=== PATIENT | female | born 1930 | race Caucasian/White ===

== ENCOUNTER 2020-09-24 14:02 | Inpatient (IN) | payer MEDICARE ==
[~2020-09-24] VITALS: Ht 152.4 cm; Wt 37.4 kg
[2020-09-24] MEDS ORDERED: ONDANSETRON 2MG/ML, 2ML IVPush ONE (17:30)
[2020-09-24] MEDS ORDERED: SODIUM CHLORIDE 0.9% 1,000ML IVBOLUS ONE (17:30)
[2020-09-24] MEDS ORDERED: SODIUM CHLORIDE FLUSH 10ML SYR IVF ONE (17:30)
[2020-09-24] MEDS ORDERED: ONDANSETRON 2MG/ML, 2ML ONE ×2 (17:44→23:06)
--- NOTE | 2020-09-24 17:55 | NUR ---
PT PRESENTS TO ED WITH C/O NAUSEA/DIARRHEA X3 DAYS AND BLACK STOOL. PT STATES TOOK PEPTO BISMOL RECENTLY. UNKNOWN HX OF ULCERS. AGUSTIN MAN AT BEDSIDE FOR EVAL.
--- NOTE | 2020-09-24 18:15 | NUR ---
PIV placed, meds given per order, fluids infusing, pt tolerated well. warm blanket provided, vss, nadn.
[2020-09-24 18:35] LABS: BASOPHILS % (AUTO) 0 % (0-1); EOSINOPHILS % (AUTO) 0 % (1-7); LYMPHOCYTES % (AUTO) 20 % (22-44); MEAN CORPUSCULAR HEMOGLOBIN 28.4 pg (27.0-34.8); MEAN CORPUSCULAR HGB CONC 33.2 g/dL (32.4-35.8); MEAN PLATELET VOLUME 8.3 fL (7.4-10.4); MONOCYTES % (AUTO) 10 % (2-9); NEUTROPHILS % (AUTO) 71 % (42-75); PLATELET COUNT 263 x10^3/uL (130-400); RED BLOOD COUNT 5.05 x10^6/uL (3.82-5.3); RED CELL DISTRIBUTION WIDTH 16.1 % (9.6-15.2)
[2020-09-24 18:46] LABS: ALANINE AMINOTRANSFERASE 13 U/L (12-78); ALBUMIN 2.8 g/dL (3.4-5.0); ANION GAP 9 mmol/L (5-15); CALCIUM 9.3 mg/dL (8.5-10.1); CHLORIDE 97 mmol/L (98-107); CREATININE 1.07 mg/dL (0.55-1.02)
[2020-09-24 18:48] LABS: ALKALINE PHOSPHATASE 93 U/L (45-117); BILIRUBIN,TOTAL 0.6 mg/dL (0.2-1.0); TOTAL PROTEIN 7.7 g/dL (6.4-8.2)
--- NOTE | 2020-09-24 19:01 | NUR ---
PT TO CT AT THIS TIME
[2020-09-24] MEDS ORDERED: OMNIPAQUE 350 MG/ML, 100ML BOTTLE ONE (19:28)
--- NOTE | 2020-09-24 19:30 | NUR ---
pt back from ct, vss, nadn.
--- NOTE | 2020-09-24 19:59 | NUR ---
thalia Lancaster at bedside to discuss poc
--- NOTE | 2020-09-24 20:47 | NUR ---
NG tube placed after 2 attempts, [address], MD aware. CXR ordered to confirm placement.
--- NOTE | 2020-09-24 20:48 | NUR ---
[facility] at bedside for eval
--- NOTE | 2020-09-24 21:06 | NUR ---
REPORT CALLED TO DEL IN OR
[2020-09-24] MEDS ORDERED: ONDANSETRON 2MG/ML, 2ML IVPush PRN (21:30)
[2020-09-24] MEDS ORDERED: morphine SULFATE 10 MG/ML, 1ML IVPush PRN (21:30)
[2020-09-24] MEDS: LACTATED RINGERS 1,000 ML IV SCH (21:30)
[2020-09-24] MEDS ORDERED: LABETALOL 5MG/ML, 20ML IVPush PRN (21:30)
[2020-09-24] MEDS: FAMOTIDINE 20 MG/2 ML IVPush SCH (21:30)
[2020-09-24] MEDS ORDERED: EPINEPHRINE 1 MG/ML, 1ML ONE (21:52)
[2020-09-24] MEDS ORDERED: BUPIVACAINE/PF 0.5% ONE (21:52)
--- NOTE | 2020-09-24 21:57 | NUR ---
REPORT TAKEN FROM LUIS RN, NG TUBE DC'D DUE TO INCORRECT PLACEMENT. PT READY FOR SURGERY, ALL JEWELRY REMOVED, COVID SWAB SENT, MARTYN.
[2020-09-24] MEDS ORDERED: BUPIVACAINE/PF-EPI 0.5% 1:200K IM ONE (22:45)
--- NOTE | 2020-09-24 22:57 | NUR ---
pt taken to OR at this time
[2020-09-24] MEDS ORDERED: FENTANYL PF 100 MCG/2ML ONE (23:05)
[2020-09-24] MEDS ORDERED: EPHEDRINE 50 MG/ML, 1ML ONE (23:06)
[2020-09-24] MEDS ORDERED: DEXAMETHASONE 4 MG/ML, 1ML ONE (23:06)
[2020-09-24] MEDS ORDERED: ROCURONIUM 10MG/ML,5ML ONE (23:24)
[2020-09-24] MEDS ORDERED: PROPOFOL 10 MG/ML, 20ML ONE (23:24)
[2020-09-24] MEDS ORDERED: SUCCINYLCHOLINE 20 MG/ML, 10ML ONE (23:24)
[2020-09-25] MEDS ORDERED: DIPHENHYDRAMINE 50 MG/ML, 1ML IVPush PRN ×2
[2020-09-25] MEDS ORDERED: PROMETHAZINE 12.5 MG SUPP PR PRN
[2020-09-25] MEDS ORDERED: FENTANYL PF 100 MCG/2ML IV PRN
[2020-09-25] MEDS ORDERED: ONDANSETRON 2MG/ML, 2ML IVPush PRN
[2020-09-25] MEDS ORDERED: ALBUTEROL SULFATE 2.5 MG/3 ML NPPB PRN
[2020-09-25] MEDS ORDERED: hydrALAzine 20 MG/ML, 1ML IV PRN
[2020-09-25] MEDS ORDERED: EPHEDRINE 50 MG/ML, 1ML IVPush PRN
[2020-09-25] MEDS ORDERED: LABETALOL 5MG/ML, 20ML IV PRN
[2020-09-25] MEDS ORDERED: OXYcodone 5 MG/5 ML ORAL.SOL UDC PO PRN
[2020-09-25] MEDS ORDERED: PROMETHAZINE 25 MG/ML, 1ML IVPush PRN
[2020-09-25] MEDS ORDERED: MEPERIDINE/PF 25MG/0.5ML IVPush PRN
[2020-09-25] MEDS ORDERED: HYDROmorphone 2 MG/ML, 1ML ONE (00:29)
[2020-09-25] MEDS: HYDROmorphone 1 MG/ML, 1ML INJ IVPush PRN ×3 (00:30→00:50)
[2020-09-25] MEDS ORDERED: hydrALAzine 20 MG/ML, 1ML ONE (00:37)
[2020-09-25] MEDS ORDERED: KETOROLAC 30 MG/1 ML ONE (00:43)
[2020-09-25] MEDS: KETOROLAC 30 MG/1 ML IV PRN ×3 (00:45→16:12)
[2020-09-25 01:40] VITALS: BP 109/63
[2020-09-25] MEDS ORDERED: ASPI81TA45 PO (02:22)
[2020-09-25] MEDS ORDERED: TIMO1DRO6 EACHEYE (02:22)
[2020-09-25] MEDS ORDERED: TRAM50TA2 PO (02:22)
[2020-09-25] MEDS ORDERED: BRIN10DR EACHEYE (02:22)
[2020-09-25] MEDS ORDERED: CLOP75TA52 PO (02:22)
[2020-09-25] MEDS ORDERED: PANT40TA3 PO (02:22)
[2020-09-25] MEDS ORDERED: TRIA15OI TP (02:22)
[2020-09-25] MEDS ORDERED: GABA-826 PO (02:22)
[2020-09-25] MEDS ORDERED: NETA2.5D EACHEYE (02:22)
[2020-09-25] MEDS ORDERED: LORA-864 PO (02:22)
[2020-09-25] MEDS ORDERED: LISI20TA21 PO (02:22)
[2020-09-25 04:21] VITALS: BP 102/63
[2020-09-25 04:28] LABS: MEAN CORPUSCULAR HEMOGLOBIN 28.5 pg (27.0-34.8); MEAN CORPUSCULAR HGB CONC 33.3 g/dL (32.4-35.8); MEAN PLATELET VOLUME 8.4 fL (7.4-10.4); PLATELET COUNT 233 x10^3/uL (130-400); RED BLOOD COUNT 4.58 x10^6/uL (3.82-5.3); RED CELL DISTRIBUTION WIDTH 16.2 % (9.6-15.2)
[2020-09-25 04:37] LABS: ANION GAP 8 mmol/L (5-15); CALCIUM 8.4 mg/dL (8.5-10.1); CHLORIDE 103 mmol/L (98-107)
[2020-09-25 04:55] LABS: ANISOCYTOSIS 1+; BAND#(MANUAL) 1.53 x10^3/uL; BANDS%(MANUAL) 18 % (0-7); LYMPH#(MANUAL) 0.77 x10^3/uL (1-3.4); LYMPHS% (MANUAL) 9 % (22-44); MICROCYTOSIS 1+; MONOS% (MANUAL) 7 % (2-9); OVALOCYTES 1+; SEG#(MANUAL) 5.61 x10^3/uL (1.8-6.8); SEGS% (MANUAL) 66 % (42-75)
[2020-09-25 04:56] LABS: <PLATELET ESTIMATE> ADEQUATE; <PLT MORPHOLOGY> NORMAL PLT MORPH; TOXIC GRAN 1+
[2020-09-25] MEDS ORDERED: POTASSIUM CHLORIDE 40 MEQ in SODIUM CHLORIDE 0.9% 500 ML IV ONE (08:30)
[2020-09-25 08:34] VITALS: BP 111/54
[2020-09-25] MEDS: FAMOTIDINE 20 MG/2 ML IVPush SCH ×2 (11:04→20:54)
[2020-09-25] MEDS: LACTATED RINGERS 1,000 ML IV SCH (11:05)
[2020-09-25 13:24] VITALS: BP 112/62
[2020-09-25 20:32] VITALS: BP 134/72
[2020-09-26 01:34] VITALS: BP 137/77
[2020-09-26] MEDS: LACTATED RINGERS 1,000 ML IV SCH ×2 (01:59→10:00)
[2020-09-26 05:42] LABS: BASOPHILS % (AUTO) 0 % (0-1); EOSINOPHILS % (AUTO) 0 % (1-7); LYMPHOCYTES % (AUTO) 22 % (22-44); MEAN CORPUSCULAR HEMOGLOBIN 28.5 pg (27.0-34.8); MEAN CORPUSCULAR HGB CONC 33.2 g/dL (32.4-35.8); MEAN PLATELET VOLUME 8.2 fL (7.4-10.4); MONOCYTES % (AUTO) 11 % (2-9); NEUTROPHILS % (AUTO) 67 % (42-75); PLATELET COUNT 183 x10^3/uL (130-400); RED BLOOD COUNT 3.85 x10^6/uL (3.82-5.3); RED CELL DISTRIBUTION WIDTH 16.2 % (9.6-15.2)
[2020-09-26 05:45] LABS: CHLORIDE 110 mmol/L (98-107)
[2020-09-26 05:57] LABS: ANION GAP 4 mmol/L (5-15); CALCIUM 8.4 mg/dL (8.5-10.1)
[2020-09-26 07:40] VITALS: BP 166/71
[2020-09-26] MEDS ORDERED: hydrALAzine 20 MG/ML, 1ML IV PRN (08:00)
[2020-09-26 12:10] VITALS: BP 167/70
[2020-09-26] MEDS ORDERED: POTASSIUM PHOSPHATE 22 MEQ in SODIUM CHLORIDE 0.9% 500 ML IV ONE (14:30)
[2020-09-26 20:01] VITALS: BP 137/74
[2020-09-26] MEDS: TIMOLOL OPHTH 0.5%, 5ML EACHEYE SCH (20:54)
[2020-09-26] MEDS: FAMOTIDINE 20 MG/2 ML IVPush SCH (20:54)
[2020-09-26] MEDS: OPTHALMIC EACHEYE SCH (20:54)
[2020-09-26] MEDS: NETARSUDIL EACHEYE SCH (20:54)
[2020-09-26] MEDS: BRINZOLAMIDE 1% EACHEYE SCH (20:54)
[2020-09-27 00:24] VITALS: BP 144/76
[2020-09-27] MEDS: LACTATED RINGERS 1,000 ML IV SCH ×2 (03:58→13:45)
[2020-09-27 06:17] LABS: BASOPHILS % (AUTO) 0 % (0-1); EOSINOPHILS % (AUTO) 0 % (1-7); LYMPHOCYTES % (AUTO) 17 % (22-44); MEAN CORPUSCULAR HEMOGLOBIN 28.1 pg (27.0-34.8); MEAN CORPUSCULAR HGB CONC 32.5 g/dL (32.4-35.8); MEAN PLATELET VOLUME 8.3 fL (7.4-10.4); MONOCYTES % (AUTO) 9 % (2-9); NEUTROPHILS % (AUTO) 73 % (42-75); PLATELET COUNT 213 x10^3/uL (130-400); RED BLOOD COUNT 3.87 x10^6/uL (3.82-5.3); RED CELL DISTRIBUTION WIDTH 16.6 % (9.6-15.2)
[2020-09-27 06:21] LABS: ANION GAP 9 mmol/L (5-15); CALCIUM 8.4 mg/dL (8.5-10.1); CHLORIDE 109 mmol/L (98-107)
[2020-09-27 06:24] LABS: CREATININE 0.41 mg/dL (0.55-1.02)
[2020-09-27 07:35] VITALS: BP 185/88
[2020-09-27] MEDS: OPTHALMIC EACHEYE SCH ×2 (09:27→19:48)
[2020-09-27] MEDS: BRINZOLAMIDE 1% EACHEYE SCH ×2 (09:27→19:48)
[2020-09-27] MEDS: TIMOLOL OPHTH 0.5%, 5ML EACHEYE SCH ×2 (09:39→19:48)
[2020-09-27 12:50] VITALS: BP 154/78
[2020-09-27] MEDS ORDERED: ENOXAPARIN 40 MG/0.4 ML SQ SCH (15:00)
[2020-09-27] MEDS: D5%-0.45NACL+KCL 20MEQ 1,000 ML IV SCH ×2 (15:40→23:52)
[2020-09-27 19:02] VITALS: BP 157/81
[2020-09-27] MEDS: FAMOTIDINE 20 MG/2 ML IVPush SCH (19:48)
[2020-09-27] MEDS: NETARSUDIL EACHEYE SCH (19:48)
[2020-09-28 00:04] VITALS: BP 155/97
[2020-09-28] MEDS: KETOROLAC 30 MG/1 ML IV PRN (01:56)
[2020-09-28 05:40] LABS: BASOPHILS % (AUTO) 0 % (0-1); EOSINOPHILS % (AUTO) 1 % (1-7); LYMPHOCYTES % (AUTO) 18 % (22-44); MEAN CORPUSCULAR HEMOGLOBIN 28.2 pg (27.0-34.8); MEAN CORPUSCULAR HGB CONC 33.1 g/dL (32.4-35.8); MEAN PLATELET VOLUME 8.3 fL (7.4-10.4); MONOCYTES % (AUTO) 11 % (2-9); NEUTROPHILS % (AUTO) 70 % (42-75); PLATELET COUNT 222 x10^3/uL (130-400); RED CELL DISTRIBUTION WIDTH 15.7 % (9.6-15.2)
[2020-09-28 05:51] LABS: ANION GAP 6 mmol/L (5-15); CALCIUM 7.8 mg/dL (8.5-10.1); CHLORIDE 102 mmol/L (98-107)
[2020-09-28 05:53] LABS: CREATININE 0.45 mg/dL (0.55-1.02)
[2020-09-28 06:39] VITALS: BP 153/78
[2020-09-28] MEDS: BRINZOLAMIDE 1% EACHEYE SCH ×2 (08:26→20:20)
[2020-09-28] MEDS: OPTHALMIC EACHEYE SCH ×2 (08:26→20:20)
[2020-09-28] MEDS: D5%-0.45NACL+KCL 20MEQ 1,000 ML IV SCH (08:26)
[2020-09-28] MEDS ORDERED: POTASSIUM PHOSPHATE 44 MEQ in SODIUM CHLORIDE 0.9% 500 ML IV ONE (08:30)
[2020-09-28] MEDS: TIMOLOL OPHTH 0.5%, 5ML EACHEYE SCH ×2 (09:10→20:20)
[2020-09-28] MEDS ORDERED: GLYCERIN ADULT SUPP PR PRN (12:00)
[2020-09-28] MEDS: BISACODYL 10 MG SUPP PR PRN (13:12)
[2020-09-28 14:00] VITALS: BP 149/94
[2020-09-28] MEDS: ENOXAPARIN 30 MG/0.3 ML SQ SCH (17:09)
[2020-09-28 19:10] VITALS: BP 165/80
[2020-09-28] MEDS: FAMOTIDINE 20 MG/2 ML IVPush SCH (20:19)
[2020-09-28] MEDS: NETARSUDIL EACHEYE SCH (20:20)
[2020-09-29 02:42] VITALS: BP 153/76
[2020-09-29 05:42] LABS: ANION GAP 6 mmol/L (5-15); CALCIUM 7.4 mg/dL (8.5-10.1); CHLORIDE 107 mmol/L (98-107)
[2020-09-29 05:43] LABS: CREATININE 0.46 mg/dL (0.55-1.02)
[2020-09-29 05:44] LABS: BASOPHILS % (AUTO) 0 % (0-1); EOSINOPHILS % (AUTO) 1 % (1-7); LYMPHOCYTES % (AUTO) 24 % (22-44); MEAN CORPUSCULAR HEMOGLOBIN 28.9 pg (27.0-34.8); MEAN CORPUSCULAR HGB CONC 33.7 g/dL (32.4-35.8); MEAN PLATELET VOLUME 8.4 fL (7.4-10.4); MONOCYTES % (AUTO) 11 % (2-9); NEUTROPHILS % (AUTO) 63 % (42-75); PLATELET COUNT 247 x10^3/uL (130-400); RED CELL DISTRIBUTION WIDTH 15.9 % (9.6-15.2)
[2020-09-29 06:38] VITALS: BP 142/86
[2020-09-29] MEDS ORDERED: MAGNESIUM SULFATE PMX 4GM/100M 100 ML IVPB ONE (08:30)
[2020-09-29] MEDS: TIMOLOL OPHTH 0.5%, 5ML EACHEYE SCH ×2 (08:45→20:46)
[2020-09-29] MEDS: BRINZOLAMIDE 1% EACHEYE SCH ×2 (08:45→20:43)
[2020-09-29] MEDS: OPTHALMIC EACHEYE SCH ×2 (08:45→20:43)
[2020-09-29 12:41] VITALS: BP 113/71
[2020-09-29] MEDS: ENOXAPARIN 30 MG/0.3 ML SQ SCH (15:38)
[2020-09-29] MEDS: FAMOTIDINE 20 MG/2 ML IVPush SCH (20:41)
[2020-09-29] MEDS: NETARSUDIL EACHEYE SCH (20:45)
[2020-09-29 20:53] VITALS: BP 151/71
[2020-09-30 01:11] VITALS: BP 160/75
[2020-09-30 05:33] LABS: ANION GAP 5 mmol/L (5-15); CALCIUM 7.1 mg/dL (8.5-10.1); CHLORIDE 108 mmol/L (98-107)
[2020-09-30 05:34] LABS: CREATININE 0.45 mg/dL (0.55-1.02)
[2020-09-30 06:54] VITALS: BP 130/65
[2020-09-30] MEDS: BRINZOLAMIDE 1% EACHEYE SCH ×2 (07:57→21:00)
[2020-09-30] MEDS: OPTHALMIC EACHEYE SCH ×2 (07:57→21:00)
[2020-09-30] MEDS: TIMOLOL OPHTH 0.5%, 5ML EACHEYE SCH ×2 (07:58→21:00)
[2020-09-30] MEDS ORDERED: POTASSIUM CHLORIDE 40 MEQ in SODIUM CHLORIDE 0.9% 500 ML IV ONE (08:00)
[2020-09-30] MEDS ORDERED: POTASSIUM PHOSPHATE 22 MEQ in SODIUM CHLORIDE 0.9% 500 ML IV ONE (12:30)
[2020-09-30] MEDS: IBUPROFEN 200 MG TABLET PO PRN (12:48)
[2020-09-30 13:24] VITALS: BP 166/82
[2020-09-30] MEDS: ENOXAPARIN 30 MG/0.3 ML SQ SCH (16:53)
[2020-09-30] MEDS: LISINOPRIL 20 MG TABLET PO SCH (16:53)
[2020-09-30 19:35] VITALS: BP 164/89
[2020-09-30] MEDS: NETARSUDIL EACHEYE SCH (21:00)
[2020-09-30] MEDS: BISACODYL 10 MG SUPP PR PRN (21:47)
[2020-09-30] MEDS: FAMOTIDINE 20 MG/2 ML IVPush SCH (21:47)
[2020-10-01 00:15] VITALS: BP 159/78
[2020-10-01 05:53] LABS: ANION GAP 7 mmol/L (5-15); CALCIUM 7.3 mg/dL (8.5-10.1); CHLORIDE 109 mmol/L (98-107)
[2020-10-01 06:33] VITALS: BP 158/83
[2020-10-01 08:09] VITALS: BP 155/89
[2020-10-01] MEDS: LISINOPRIL 20 MG TABLET PO SCH (08:13)
[2020-10-01] MEDS: OPTHALMIC EACHEYE SCH ×2 (08:14→20:37)
[2020-10-01] MEDS: TIMOLOL OPHTH 0.5%, 5ML EACHEYE SCH ×2 (08:14→20:37)
[2020-10-01] MEDS: BRINZOLAMIDE 1% EACHEYE SCH ×2 (08:14→20:37)
[2020-10-01] MEDS: IBUPROFEN 200 MG TABLET PO PRN (15:42)
[2020-10-01] MEDS: ENOXAPARIN 30 MG/0.3 ML SQ SCH (15:43)
[2020-10-01 19:15] VITALS: BP 165/84
[2020-10-01] MEDS: NETARSUDIL EACHEYE SCH (20:37)
[2020-10-01] MEDS ORDERED: FAMOTIDINE 20 MG TABLET PO SCH (21:00)
[2020-10-02 01:27] VITALS: BP 128/65
[2020-10-02 06:55] VITALS: BP 167/77
[2020-10-02] MEDS ORDERED: SODIUM CHLORIDE 0.9% 1,000 ML IV SCH (07:00)
[2020-10-02 09:17] LABS: ANION GAP 8 mmol/L (5-15); CALCIUM 7.6 mg/dL (8.5-10.1); CHLORIDE 107 mmol/L (98-107)
[2020-10-02] MEDS: LISINOPRIL 20 MG TABLET PO SCH (10:09)
[2020-10-02] MEDS: TIMOLOL OPHTH 0.5%, 5ML EACHEYE SCH (10:10)
[2020-10-02] MEDS: BRINZOLAMIDE 1% EACHEYE SCH (10:11)
[2020-10-02] MEDS: OPTHALMIC EACHEYE SCH (10:11)
[2020-10-02] MEDS ORDERED: SENN1TAB94 PO (11:22)
[2020-10-02 13:08] VITALS: BP 169/83
== END 2020-10-02 16:49 | disposition home or self-care (01) | DRG 351 ==
LOC: ED 21:20 → EDIP 21:41 → 4NE 09-25 01:47
PROVIDERS: ADMIT Internal Medicine; ATTEND Internal Medicine
PROC: 0YU54JZ Supplement Right Inguinal Region with Synthetic Substitute, Percutaneous Endoscopic Approach (ICD-10-PCS; principal; 2020-09-24)
PROC: 0D9670Z Drainage of Stomach with Drainage Device, Via Natural or Artificial Opening (ICD-10-PCS; 2020-09-26)
DX: K40.30 Unilateral inguinal hernia, with obstruction, without gangrene, not specified as recurrent (principal); E44.0 Moderate protein-calorie malnutrition; Z68.1 Body mass index [BMI] 19.9 or less, adult; M48.56XA Collapsed vertebra, not elsewhere classified, lumbar region, initial encounter for fracture; K91.30 Postprocedural intestinal obstruction, unspecified as to partial versus complete; K44.9 Diaphragmatic hernia without obstruction or gangrene; H91.90 Unspecified hearing loss, unspecified ear; I10 Essential (primary) hypertension; I71.2 Thoracic aortic aneurysm, without rupture; H40.9 Unspecified glaucoma; M81.0 Age-related osteoporosis without current pathological fracture; Z20.822 Contact with and (suspected) exposure to COVID-19; Z87.891 Personal history of nicotine dependence; Z90.49 Acquired absence of other specified parts of digestive tract; Y83.8 Other surgical procedures as the cause of abnormal reaction of the patient, or of later complication, without mention of misadventure at the time of the procedure; Y92.239 Unspecified place in hospital as the place of occurrence of the external cause
CPT/HCPCS: 36415; 70450; 71045; 74018; 74177; 80048; 80053; 83690; 83735; 84100; 85025; 87635; 93005; 96361; 96372; 96374; G0378; J0171; J1100; J1170; J1650; J1885; J2405; J2704; J3010; J3480; Q9967; C1727; C1781; J0330; J0360; J3475; J7030; J7040; J7120